=== PATIENT | male | born 1980 | race Two or more races ===

== ENCOUNTER 2025-09-20 12:35 | Emergency (ER) | payer MEDICAID, SELFPAY ==
[2025-09-20 12:40] VITALS: BP 182/98; PULSE 85; RESP 22; TEMP 36.3; O2SAT 100
--- NOTE | 2025-09-20 12:45 | XR_ITS ---
Examination: CT chest, without intravenous contrast. CT abdomen, without intravenous contrast. CT pelvis, without intravenous contrast. 2-D sagittal and coronal reconstructions. 3-D reconstructions. Date and time of exam: September 20, 2025, 1323 hours, comparison CT abdomen pelvis March 20, 2022 INDICATIONS: Chest pain left abdomen flank pain onset today CTDI vol (mgy) 7.3 DLP (MGycm) 538 Technique: Multiple CT images, 3.0 mm slice thickness, obtained chest, abdomen, pelvis, with the high-resolution 64 slice scanner.. Sagittal and coronal 2-D reconstructions are obtained. 3-D reconstructions Low dose protocols were performed. One or more of the following dose reduction techniques were used; automated exposure control, adjustment of the mA and/or KV according to patient size, use of iterative reconstruction technique. Findings: Thoracic aorta pulmonary arteries intact Mild calcification left anterior descending coronary artery. No paratracheal tracheobronchial or bronchopulmonary adenopathy 8 mm pulmonary nodule right upper lobe image 77 No pneumonia or pulmonary edema No visualized liver or splenic lesion No gallstones No pancreatic or adrenal mass Minimal left hydronephrosis secondary to 2 mm distal left ureterovesical junction calculus, axial image 297 No bowel obstruction No pericecal inflammatory change Diffuse moderate lumbar degenerative disc disease IMPRESSION: No mediastinal lymphadenopathy No pneumonia or pulmonary edema or pleural disease Recommend 6-month follow-up CT chest to document stability of 8 mm pulmonary nodule right upper lobe Minimal left hydronephrosis secondary to 2 mm distal left ureterovesical junction calculus
--- NOTE | 2025-09-20 12:47 | PD.EDADULT ---
ED General RME/HPI General Chief complaint: Abdominal Pain Stated complaint: LEFT SIDE FLANK/ABD PAIN Time Seen by Provider: 09/20/25 12:45 Arrival date/time: 09/20/25 12:35 CC: Left flank pain abrupt onset approximately 3 hours ago. Denies nausea or vomiting, no prior history of similar events no prior history denies chest pain shortness of breath or difficulty breathing. EMS reports stable vital signs Zofran given and route for nausea pain is a 9 out of 10 on a 10 scale. Related Data Previous Rx's ?Medication ?Instructions ?Recorded ketorolac 10 mg tablet 10 mg PO Q8H #10 tabs 09/20/25 Allergies Allergy/AdvReac Type Severity Reaction Status Date / Time No Known Allergies Allergy Verified 09/20/25 13:34 Review of Systems Review of Systems Narrative Review of Systems: GEN: No fever, no chills, no weight loss EYES: No discharge, no visual changes, no pain HEENT: No ear pain, no congestion, no sore throat PULM: No shortness of breath, no cough, no congestion CV: No chest pain, no dyspnea on exertion, no palpitations GI: No nausea, no vomiting, no diarrhea, no pain, no constipation, + flank pain : No frequency, no urgency, no dysuria MUSC/SKEL: No joint pain, no back pain SKIN: No rash PSYCH: No hallucinations, no depression HEME/LYMPH: No easy bleeding or bruising tendencies NEURO: No weakness, no headache ED Exam Narrative Physical exam: [General: In moderate discomfort but not in any acute distress Head normocephalic HEENT: Within acceptable limits Neck is supple nontender Chest equal chest rise nontender to palpation Respiratory: Clear to auscultation no wheezes crackles or rubs CV: Rate rhythm is regular no murmurs rubs or clicks Abdomen is soft nontender no masses positive bowel sounds all 4 quadrants Back: left CVA tenderness no right CVA tenderness, no spinous process tenderness from cervical spine thoracic and lumbar spine Skin: Intact no petechiae rash induration ulceration or crepitus Extremities: Moving all extremities against resistance cap refill less than 2 seconds neurosensory intact Neuro: Awake alert oriented x3 Glascow coma 15 no focal deficits] Course Course Course Narrative: Reassessment of the patient at 1750, the patient is completely healed has no complaints of pain nausea or vomiting. Quality Measures none Orders Category Date Time Status CT chest abdomen pelvis wo Stat Exams 09/20/25 12:45 Completed CBC Stat Lab 09/20/25 13:59 Completed CMP [Comprehensive Metabolic Panel] Stat Lab 09/20/25 13:59 Completed Drug Screen,Urine Stat Lab 09/20/25 12:46 Ordered Urinalysis Stat Lab 09/20/25 12:46 Ordered Ketorolac Inj [Toradol Inj] Med 09/20/25 12:45 Discontinued 30 mg IM X1 ONE Vital Signs Vital signs: Vital Signs Temperature 97.4 F 09/20/25 12:40 Pulse Rate 85 09/20/25 12:40 Respiratory Rate 22 H 09/20/25 12:40 Blood Pressure 182/98 H 09/20/25 12:40 Pulse Oximetry (%) 100 09/20/25 12:40 Oxygen Delivery Method Room Air 09/20/25 12:40 Discharge Plan Plan Patient Disposition: HOME (Self Care) Prescriptions/Referrals Prescriptions/Med Rec: New ketorolac 10 mg tablet 10 mg PO Q8H Qty: 10 0RF Rx Instructions: maximum total duration of 5 days from all oral, intranasal, or parenteral formulations Referrals: Jesus Ingram MD [Primary Care Provider, Family Practice] - In 1 week Germaine Vega MD [Physician, Urology] - In 1 week Problem List Clinical Impression: Urolithiasis, Left flank pain Patient/Caregiver Discharge Instructions Education Materials: ED Kidney Stone w/ Colic Additional Instructions: Take the medicine as needed for pain if there is a worsening of symptoms return the emergency room otherwise follow-up with a urologist listed above Print Language: Lao Stand Alone Forms: Rena Award Info., Patient Portal Info Letter, Work/School Release PA/[employer] SPECIALIST Supervising Physician PA/[employer] SPECIALIST Supervising Physician: Robin Webster ENP [facility] Clinical Information Provided by: patient and EMS Medical [facility] Meds/Rx considered, not ordered None Labs/Rad/Tests considered, not ordered None Labs Labs: interpreted by me Lab(s) Interpretation(s): CBC shows a mild leukocytosis of 14.1 no anemia thrombocytopenia CMP shows no significant electrolyte about renal impairment transaminitis or T. bili elevation Imaging Imaging interpretation: interpreted by me Imaging Interpretation(s): Left 2 mm stone at the UVJ mild hydro Medication Administration(s) Medication Administration History Discontinued Medications Ketorolac Tromethamine (Ketorolac Inj 30 Mg/Ml Vial) 30 mg IM X1 ONE Stop: 09/20/25 12:46 Last Admin: 09/20/25 14:20 Dose: 30 mg Documented By: JOSELINE
--- NOTE | 2025-09-20 13:23 | PC.NURSE ---
CALLED FROM [facility] FOR TRIAGE AND NO ANSWER. PT POSSIBLY IN CT
[2025-09-20 13:31] VITALS: PULSE 84; RESP 20; O2SAT 99; BMI 25.1
--- NOTE | 2025-09-20 13:35 | PC.NURSE ---
PT WAS TAKEN TO THE LOBBY AT 1255 BUT TRIAGE NOT DONE UNTILE NOW DUE TO PT HAVING PROCEDURES DONE
[2025-09-20] MEDS: KETOROLAC INJ 30 MG/ML VIAL IM (14:20)
[2025-09-20 14:27] LABS: Basophils # (Auto) 0.0 Thou/mm3 (0.0-0.2); Basophils % (Auto) 0 % (0-2.5); Eosinophils # (Auto) 0.1 Thou/mm3 (0.0-0.5); Eosinophils % (Auto) 0 % (0-10); Hematocrit 43.8 % (41.0-53.0); Hemoglobin 14.7 g/dL (13.5-16.0); Immature Granulocytes Auto 0.06 Thou/mm3 (0.00-0.00); Lymphocytes # (Auto) 1.5 Thou/mm3 (1.0-4.8); Lymphocytes % (Auto) 11 % (10-50); Mean Corpuscular HGB Conc 33.6 g/dl (31.0-37.0); Mean Corpuscular Hemoglobin 30.8 pg (25.0-35.0); Mean Corpuscular Volume 92 fL (80-100); Monocytes # (Auto) 1.1 Thou/mm3 (0.0-0.8); Monocytes % (Auto) 8 % (0-12); Neutrophils # (Auto) 11.4 Thou/mm3 (1.8-7.7); Neutrophils % (Auto) 81 % (37-80); Nucleated Red Blood Cell # 0.00 Thou/mm3 (0.00-0.00); Nucleated Red Blood Cell % 0 /100 WBC (0); Platelet Count 371 Thou/mm3 (140-440); RDW Standard Deviation 41.8 fL (35.1-43.9); Red Blood Count 4.78 Miln/mm3 (4.50-5.90); White Blood Count 14.1 Thou/mm3 (3.8-10.6)
[2025-09-20 14:40] LABS: Alanine Aminotransferase 58 U/L (10-49); Albumin, Serum 4.6 gm/dL (3.5-5.0); Albumin/Globulin Ratio 2.2 (1.2-2.2); Alkaline Phosphatase 66 U/L (46-116); Anion Gap 8 (7-16); Aspartate Amino Transferase 32 U/L (0-34); BUN/Creatinine Ratio 15 Ratio (12-20); Bilirubin,Total 0.7 mg/dL (0.3-1.2); Blood Urea Nitrogen 17 mg/dL (9-23); Calcium 9.7 mg/dL (8.3-10.6); Calcium (Corrected) 9.7 mg/dL (8.5-10.1); Carbon Dioxide 28.4 mMol/L (20.0-31.0); Chloride 105 mMol/L (98-107); Creatinine (Component) 1.1 mg/dL (0.6-1.3); Estimated Creatinine Clearance 87.5 mL/min (>60); Globulin 2.1 gm/dL (2.3-3.5); Glucose 83 mg/dL (74-106); Osmolality,Calculated 281 (275-295); Potassium 4.2 mMol/L (3.4-5.1); Sodium 141 mMol/L (136-145); Total Protein 6.7 gm/dL (5.7-8.2); eGFR > 60 See Note
[2025-09-20 16:34] VITALS: BP 148/98; PULSE 79; RESP 17; TEMP 36.9; O2SAT 100
== END 2025-09-20 17:53 | disposition home or self-care (01) ==
PROVIDERS: Registered Nurse General Practice; Emergency Provider Emergency Medicine; PCP Family Medicine
DX: N20.0 Calculus of kidney (principal)
CPT/HCPCS: 36415; 71250; 74176; 80053; 80307; 81001; 85025; 96372; 99283; J1885